=== PATIENT | male | born 1940 | race Caucasian/White ===

== ENCOUNTER 2017-11-11 08:43 | Emergency (ER) | payer OTHER, MEDICARE ==
[~2017-11-11] VITALS: Ht 177.8 cm; Wt 78.0 kg
[2017-11-11 08:59] VITALS: BP 141/105
[2017-11-11] MEDS ORDERED: IBUPROFEN 200 MG TABLET ONE (09:59)
[2017-11-11] MEDS ORDERED: IBUPROFEN 200 MG TABLET PO ONE (10:00)
== END 2017-11-11 10:09 | disposition home or self-care (01) ==
LOC: ED 09:50
DX: K02.9 Dental caries, unspecified (principal)
CPT/HCPCS: 70100; 99284